=== PATIENT | male | born 1970 | race Caucasian/White ===

== ENCOUNTER 2017-05-26 15:52 | Emergency (ER) | payer OTHER ==
[~2017-05-26] VITALS: Ht 188 cm; Wt 118.0 kg
[2017-05-26 16:10] VITALS: BP 154/90; PULSE 122; RESP 16; TEMP 98; O2SAT 96
[2017-05-26] MEDS ORDERED: LIDOCAINE 1%/EPINEPHrine 1:100,000 SOLN 30 ML VIAL ONE (16:26)
--- NOTE | 2017-05-26 16:26 | PD ---
HPI Chief Complaint: Skin Problem Time Seen by Provider: 16:18 Travel History International Travel<30 days: No Contact w/Intl Traveler<30days: No Traveled to known affect area: No History of Present Illness HPI Patient comes emergency department for an abscess of right forearm began approximately a week ago after injecting heroin. Patient states he went to [facility] yesterday and was started on Bactrim and Keflex was told they could not I&D it there and decided come to the emergency department for further treatment evaluation. Describes a throbbing pressure pain over the area of abscess is worse palpation and certain movement. Patient reports taking antibiotics as prescribed with little to no improvement of symptoms. Severity moderate. Denies any fevers, chest pain, shortness of breath, nausea, or vomiting. PFSH Past Medical History Hypertension: Yes Social History Alcohol Use: Yes Tobacco Use: Yes Substance Use: Yes (Heroin) Allergies-Medications (Allergen,Severity, Reaction): Coded Allergies: alprazolam (Verified Allergy, Severe, blackouts, 05/26/17) Reported Meds & Prescriptions Reported Meds & Active Scripts Active Reported Cephalexin 250 Mg Cap Unknown Dose PO Q6H Bactrim DS (Sulfamethoxazole-Trimethoprim) 800-160 Mg Tab 1 Tab PO BID Review of Systems Except as stated in HPI: all other systems reviewed are Neg Physical Exam Narrative GENERAL: Well-developed, overly nourished, in no acute distress, and non-ill appearing. SKIN: Fluctuant abscess noted over right proximal forearm volar surface. Mild surrounding cellulitis. No crepitus. HEAD: Atraumatic. Normocephalic. EYES: Pupils equal and round. EOMI. No scleral icterus. No injection or drainage. ENT: No nasal bleeding or discharge. Mucous membranes pink and moist. NECK: Trachea midline. Supple. No nuclear rigidity. RESPIRATORY: No accessory muscle use. No respiratory distress. MUSCULOSKELETAL: No obvious deformities. No clubbing. No cyanosis. No edema. Full range of motion. NEUROLOGICAL: Awake and alert. No obvious cranial nerve deficits. Motor grossly within normal limits. Normal speech. PSYCHIATRIC: Appropriate mood and affect; insight and judgment normal. Data Data Last Documented VS Vital Signs Date Time Temp Pulse Resp B/P (MAP) Pulse Ox O2 Delivery O2 Flow Rate FiO2 05/26/17 16:10 98.0 122 16 154/90 (111) 96 Orders Orders Wound Culture And Gram Stain (05/26/17 16:18) Lidocai-Epi 1%-1:100,000 Inj (Xylocaine- (05/26/17 16:30) Lidocai-Epi 1%-1:100,000 Inj (Xylocaine- (05/26/17 16:26) Ketorolac Inj (Toradol Inj) (05/26/17 16:45) Clindamycin Inj (Cleocin Inj) (05/26/17 16:45) Ed Discharge Order (05/26/17 16:39) [facility] Medical Decision Making Medical Screen Exam Complete: Yes Emergency Medical Condition: Yes Differential Diagnosis Abscess, cellulitis, folliculitis, gangrene Narrative Course The patient has no evidence of significant cellulitis. There is no evidence of necrotizing fasciitis/ Joanna at this time. The patient will be discharged and instructed to continue previously prescribed antibiotics. The patient was given signs and symptoms warnings for worsening infection, such as spreading of redness, increasing pain, and/or swelling, associated heat, or fever or feels worse, and instructed to return immediately if these signs or symptoms worsen. The patient is to return in 2 days for recheck. Sooner if worsens or as needed. The patient agrees with plan. Patient in no obvious distress upon re-evaluation. Patient was asked if they wanted to speak to my attending, which the patient did not wish to do at this time. Any questions/concerns in reference to patient diagnosis/condition discussed and clarified prior to patient's discharge. Reinforced sheer importance of close follow up with patient's primary physician or primary care clinic or to return in 2 days for recheck. Instructed patient to return to ED immediately, if symptoms return/worsen. Patient showed understanding of above instructions. Further instructions and recommendations were detailed in discharge paperwork. Patient ambulated without difficulty out of ED at discharge. Procedures Procedure Narrative INCISION AND DRAINAGE OF ABSCESS: Verbal consent was obtained. The area was prepped. A subcutaneous wheal of 1% Xylocaine with epi with a total number 3 mL was used to anesthetize the area. The area was properly anesthetized. A number 11 scalpel was used to make a 1-cm incision across the area of the abscess. The abscess was drained and irrigated with normal saline. Half inch iodoform packing was placed in the wound. Sterile dressing applied by nurse. Patient tolerated procedure well. Patient advised to return here in 2 days to have packing removed and wound rechecked. Patient verbalized understanding. Diagnosis Primary Impression: Abscess of right forearm Patient Instructions: Abscess (ED), Abscess Incision and Drainage (DC), General Instructions Additional Instructions: Follow-up here in 2 days for recheck. Take all medication as previously prescribed. Apply warm compresses to affected area to facilitate drainage. Return to the emergency department sooner if symptoms get worse. Disposition: 01 DISCHARGE HOME Condition: Stable Osman Reyna May 26, 2017 16:26
[2017-05-26] MEDS ORDERED: BACT800T5 PO (16:30)
[2017-05-26] MEDS ORDERED: CEPH250C PO (16:30)
[2017-05-26] MEDS ORDERED: LIDOCAINE 1%/EPINEPHrine 1:100,000 SOLN 20 ML VIAL INFIL ONE (16:30)
[2017-05-26] MEDS ORDERED: CLINDAMYCIN PHOS 600 MG/4 ML VIAL IM ONE (16:45)
[2017-05-26] MEDS ORDERED: KETOROLAC TROMETHAMINE 30 MG/ML (IVP) VIAL IM ONE (16:45)
== END 2017-05-26 17:26 | disposition home or self-care (01) ==
LOC: NEPK 15:52
DX: L02.413 Cutaneous abscess of right upper limb (principal); B95.4 Other streptococcus as the cause of diseases classified elsewhere; I10 Essential (primary) hypertension; F11.90 Opioid use, unspecified, uncomplicated; Z72.0 Tobacco use
CPT/HCPCS: 10061; 87070; 96372; 99283; J1885